=== PATIENT | female | born 1945 | race Caucasian/White ===

== ENCOUNTER 2021-02-21 09:05 | Outpatient (REF) | payer BC, MEDICARE, SELFPAY ==
[2021-02-21 11:27] LABS: Hemoglobin 14.1 g/dl (12.0-16.0); Mean Corpuscular HGB Conc 32.8 g/dl (31.0-35.0); Mean Corpuscular Volume 94.5 fL (80-98); Mean Platelet Volume 10.5 fL (9.4-12.3); Platelet Count 374 X10*3/uL (160-400); Red Blood Count 4.55 X10*6/uL (4.20-5.50); Red Cell Distribution Width 12.4 % (11.0-16.0); White Blood Count 6.7 X10*3/uL (4.8-10.8)
[2021-02-21 11:31] LABS: Alanine Aminotransferase 23 U/L (0-31); Albumin Level 4.2 g/dL (3.5-5.0); Alkaline Phosphatase 74 U/L (39-117); Anion Gap 12 (12-20); Aspartate Amino Transferase 21 U/L (5-31); Blood Urea Nitrogen 8 mg/dL (9-16); Calcium 9.9 mg/dL (8.4-10.2); Carbon Dioxide 27 mmol/L (22-29); Chloride 108 mmol/L (96-108); Cholesterol 176 mg/dL; Estimated Glomerular Filt Rate > 60; Glucose Fasting 96 mg/dL (60-99); HDL Cholesterol 65 mg/dL; LDL Cholesterol Calculated 98 mg/dl; Potassium 4.6 mmol/L (3.3-5.1); Sodium 142 mmol/L (135-145); Total Protein 6.3 g/dL (6.5-8.0); Triglycerides 66 mg/dL
[2021-02-21 11:53] LABS: Vitamin D 25-OH Total 31.4 ng/mL (>30)
== END 2021-02-21 09:06 | disposition home or self-care (01) ==
LOC: HO.MANLDS 09:05
PROVIDERS: PCP Internal Medicine; Visit Provider Internal Medicine
DX: E78.00 Pure hypercholesterolemia, unspecified (principal)
CPT/HCPCS: 36415; 80053; 80061; 82306; 85027

== ENCOUNTER 2022-04-17 09:59 | Outpatient (REF) | payer BC, MEDICARE, SELFPAY ==
[2022-04-17 11:10] LABS: MANUAL DIFF FLAG NO
[2022-04-17 11:20] LABS: Basophils Percent Auto 0.6 % (0-2); Eosinophils Absolute Auto 0.2 X10*3/uL (0.0-0.4); Eosinophils Percent Auto 2.4 % (0-4); Hemoglobin 14.4 g/dl (12.0-16.0); Imm Gran Abs Auto 0.01 X10*3/uL (0.00-0.03); Imm Gran Pct Auto 0.2 % (0.0-0.4); Lymphocytes Absolute Auto 2.3 X10*3/uL (1.2-4.9); Lymphocytes Percent Auto 35.5 % (20-40); Mean Corpuscular HGB Conc 33.5 g/dl (31.0-35.0); Mean Corpuscular Hemoglobin 31.7 pg (27.0-33.0); Mean Corpuscular Volume 94.7 fL (80.0-98.0); Mean Platelet Volume 10.3 fL (9.4-12.3); Monocytes Absolute Auto 0.6 X10*3/uL (0.1-1.2); Monocytes Percent Auto 9.1 % (2-11); Neutrophils Absolute Auto 3.4 x10*3/uL (2.0-8.3); Neutrophils Percent Auto 52.2 % (45-73); Platelet Count 381 X10*3/uL (160-400); Red Blood Count 4.54 X10*6/uL (4.20-5.50); White Blood Count 6.6 X10*3/uL (4.8-10.8)
[2022-04-17 11:39] LABS: Alanine Aminotransferase 27 U/L (0-31); Alkaline Phosphatase 62 U/L (39-117); Anion Gap 12 (12-20); Aspartate Amino Transferase 21 U/L (5-31); Bilirubin Total 0.9 mg/dL (0.0-1.0); Blood Urea Nitrogen 10 mg/dL (9-16); Calcium 9.5 mg/dL (8.4-10.2); Carbon Dioxide 27 mmol/L (22-29); Chloride 106 mmol/L (96-108); Cholesterol 208 mg/dL; Estimated Glomerular Filt Rate > 60; Glucose Random 99 mg/dL (60-115); HDL Cholesterol 75 mg/dL; LDL Cholesterol Calculated 119 mg/dl; Potassium 4.2 mmol/L (3.3-5.1); Sodium 141 mmol/L (135-145); Total Protein 6.3 g/dL (6.5-8.0); Triglycerides 74 mg/dL
[2022-04-17 12:02] LABS: Thyroid Stimulating Hormone 1.36 uIU/mL (0.32-4.0); Vitamin D 25-OH Total 34.4 ng/mL (>30)
[2022-04-17 12:11] LABS: Vitamin B12 564 pg/mL (200-900)
== END 2022-04-17 10:00 | disposition home or self-care (01) ==
LOC: HO.MANLDS 09:59
PROVIDERS: Visit Provider Internal Medicine
DX: Z00.00 Encounter for general adult medical examination without abnormal findings (principal)
CPT/HCPCS: 36415; 80053; 80061; 82306; 82607; 84443; 85025

== ENCOUNTER 2023-11-10 08:14 | Outpatient (REF) | payer BC, MEDICARE, SELFPAY ==
[2023-11-10 13:17] LABS: MANUAL DIFF FLAG NO
[2023-11-10 13:28] LABS: Basophils Percent Auto 0.6 % (0-2); Eosinophils Absolute Auto 0.2 X10*3/uL (0.0-0.4); Eosinophils Percent Auto 3.2 % (0-4); Hematocrit 45.4 % (37.0-47.0); Imm Gran Abs Auto 0.01 X10*3/uL (0.00-0.03); Imm Gran Pct Auto 0.2 % (0.0-0.4); Lymphocytes Absolute Auto 2.2 X10*3/uL (1.2-4.9); Lymphocytes Percent Auto 41.6 % (20-40); Mean Corpuscular Hemoglobin 31.3 pg (27.0-33.0); Mean Corpuscular Volume 94.6 fL (80.0-98.0); Mean Platelet Volume 10.3 fL (9.4-12.3); Monocytes Absolute Auto 0.5 X10*3/uL (0.1-1.2); Monocytes Percent Auto 8.9 % (2-11); Neutrophils Absolute Auto 2.4 x10*3/uL (2.0-8.3); Neutrophils Percent Auto 45.5 % (45-73); Platelet Count 373 X10*3/uL (160-400); Red Cell Distribution Width 12.3 % (11.0-16.0); White Blood Count 5.3 X10*3/uL (4.8-10.8)
[2023-11-10 14:20] LABS: Alanine Aminotransferase 35 U/L (0-31); Albumin Level 4.2 g/dL (3.5-5.0); Alkaline Phosphatase 70 U/L (39-117); Anion Gap 11 (12-20); Aspartate Amino Transferase 25 U/L (5-31); Blood Urea Nitrogen 8 mg/dL (9-16); Calcium 9.9 mg/dL (8.4-10.2); Carbon Dioxide 29 mmol/L (22-29); Chloride 105 mmol/L (96-108); Cholesterol 205 mg/dL (<200); Estimated Glomerular Filt Rate > 60; Glucose Random 91 mg/dL (60-115); HDL Cholesterol 83 mg/dL (>40); LDL Cholesterol Calculated 107 mg/dL (<100); Potassium 4.1 mmol/L (3.3-5.1); Sodium 141 mmol/L (135-145); Total Protein 6.7 g/dL (6.5-8.0); Triglycerides 76 mg/dL (<150)
[2023-11-10 14:29] LABS: Vitamin D 25-OH Total 38.1 ng/mL (>30)
== END 2023-11-10 08:15 | disposition home or self-care (01) ==
LOC: HO.MANLDS 08:14
PROVIDERS: Visit Provider Internal Medicine
DX: I10 Essential (primary) hypertension (principal); E55.9 Vitamin D deficiency, unspecified
CPT/HCPCS: 36415; 80053; 80061; 82306; 85025

== ENCOUNTER 2024-11-21 08:12 | Outpatient (REF) | payer BC, MEDICARE, SELFPAY ==
[2024-11-21 13:12] LABS: MANUAL DIFF FLAG NO
[2024-11-21 13:32] LABS: Basophils Absolute Auto 0.1 X10*3/uL (0.0-0.2); Basophils Percent Auto 0.7 % (0-2); Eosinophils Absolute Auto 0.2 X10*3/uL (0.0-0.4); Eosinophils Percent Auto 2.3 % (0-4); Hematocrit 43.2 % (37.0-47.0); Hemoglobin 14.3 g/dl (12.0-16.0); Imm Gran Abs Auto 0.02 X10*3/uL (0.00-0.03); Imm Gran Pct Auto 0.3 % (0.0-0.4); Lymphocytes Absolute Auto 2.1 X10*3/uL (1.2-4.9); Lymphocytes Percent Auto 30.5 % (20-40); Mean Corpuscular HGB Conc 33.1 g/dl (31.0-35.0); Mean Corpuscular Hemoglobin 31.8 pg (27.0-33.0); Mean Corpuscular Volume 96.2 fL (80.0-98.0); Mean Platelet Volume 10.4 fL (9.4-12.3); Monocytes Absolute Auto 0.7 X10*3/uL (0.1-1.2); Monocytes Percent Auto 9.8 % (2-11); Neutrophils Absolute Auto 3.8 x10*3/uL (2.0-8.3); Neutrophils Percent Auto 56.4 % (45-73); Platelet Count 367 X10*3/uL (160-400); Red Blood Count 4.49 X10*6/uL (4.20-5.50); Red Cell Distribution Width 12.4 % (11.0-16.0); White Blood Count 6.8 X10*3/uL (4.8-10.8)
[2024-11-21 14:14] LABS: Alanine Aminotransferase 35 U/L (0-31); Alkaline Phosphatase 62 U/L (39-117); Anion Gap 8 (12-20); Aspartate Amino Transferase 29 U/L (5-31); Bilirubin Total 0.8 mg/dL (0.0-1.0); Blood Urea Nitrogen 11 mg/dL (9-16); Calcium 9.3 mg/dL (8.4-10.2); Carbon Dioxide 30 mmol/L (22-29); Chloride 106 mmol/L (96-108); Cholesterol 197 mg/dL (<200); Estimated Glomerular Filt Rate > 60; Glucose Fasting 90 mg/dL (60-99); HDL Cholesterol 83 mg/dL (>40); LDL Cholesterol Calculated 103 mg/dL (<100); Potassium 4.2 mmol/L (3.3-5.1); Sodium 140 mmol/L (135-145); Total Protein 6.3 g/dL (6.5-8.0); Triglycerides 58 mg/dL (<150)
[2024-11-21 14:16] LABS: Vitamin D 25-OH Total 42.6 ng/mL (>30)
== END 2024-11-21 08:13 | disposition home or self-care (01) ==
LOC: HO.MANLDS 08:12
PROVIDERS: Visit Provider Internal Medicine
DX: I10 Essential (primary) hypertension (principal); E78.00 Pure hypercholesterolemia, unspecified
CPT/HCPCS: 36415; 80053; 80061; 82306; 85025

== ENCOUNTER 2025-05-14 10:10 | Outpatient (REF) | payer BC, MEDICARE, SELFPAY ==
--- OUTSIDE RECORDS SUMMARY | 2025-05-14 11:50 | XMS_ITS | Encounter Summary ---
Author Organization [facility] Address [address] [facility] [address] [place] [address] Phone Care Team Providers Care Franchise Sales Manager Name Role Phone Liam Matias DO Primary Care Provider Liam Matias DO Unavailable Encounter Details Date Type Department Care Team (Late st Contact Info) Description 11/22/2018 Transcribe Orders Virtual Department [address] [place] [address] Liam Matias DO [address] [facility] [place] [address] [place] [address] [email or web address] Other specified disorders of bone density and structure, unspecified site (Primary Dx) Social History Tobacco Use Types Packs/Day Years Used Date Smoking Tobacco: Never Assessed Comments No Sex and Gender Information Value Date Recorded Sex Assigned at Not on file Legal Sex Female 10:07 PM EDT Gender Identity Not on file Sexual Orientation Not on file documented as of this encounter Plan of Treatment Not on file documented as of this encounter Results * BD DXA AXIAL (SPINE) WITH HIP (12/12/2018 11:28 AM EDT) Anatomical Region Laterality Modality Bone Density Bone Density 12/12/2018 12:2 9 PM EDT Impressions 12/12/2018 12:31 PM EDT Osteopenia evident in the left hip. S/S: Estrogen deficiency, bone density screening, height loss, osteopenia POS - [id number] Narrative 12/12/2018 12:31 PM EDT This is a 73-year-old postmenopausal patient with 1/2 inch of height loss reported.. Evaluation of the lumbar spine and both hips is obtained and appears appropriate. The lumbar spine from L1 through L4 discloses a total bone mineral density of 1.107 g/cm2 with a T-score of 0.5. This is in the normal range. The right hip has a total bone mineral density of 0.823 g/cm2 with a T-score of -1.0 this is in the normal range. The left hip has a total bone mineral density of 0.756 g/cm2 for a T-score of -1.5. This is in the osteopenia range. Procedure Note Andrea Plascencia MD - 12/12/2018 This is a 73-year-old postmenopausal patient with 1/2 inch of height lossreported.. Evaluation of the lumbar spine and both hips is obtained and appearsappropriate. The lumbar spine from L1 through L4 discloses a total bone mineral densityof 1.107 g/cm2 with a T-score of 0.5. This is in the normal range. The right hip has a total bone mineral density of 0.823 g/cm2 with aT-score of - 1.0 this is in the normal range. The left hip has a total bone mineral density of 0.756 g/cm2 for a T-scoreof - 1.5. This is in the osteopenia range. IMPRESSION: Osteopenia evident in the left hip. S/S: Estrogen deficiency, bone density screening, height loss, osteopenia POS - [id number] us Liam Matias DO IMG BD BONE DENSITY DEXA Final R esult documented in this encounter Visit Diagnoses Diagnosis Other specified disorders of bone density and structure, unspecified site- Primary Other specified disorders of bone density and structure, unspecified site documented in this encounter Care Teams Franchise Sales Manager Relationship Specialty Start Date End Date Liam Matias DO [email or web address] PCP - General 05/10/17 Liam Matias DO [address] [place] [address] [email or web address] Insurance Assigned Provider 10/30/23 documented as of this encounter Additional Source Comments The information contained in this document represents components of the legal health record. It is not the complete legal health record.[facility]
--- OUTSIDE RECORDS SUMMARY | 2025-05-14 11:50 | XMS_ITS | Encounter Summary ---
Author Organization [facility] Address [address] [address] Phone Care Team Providers Care Music Historian Name Role Phone Liam Matias DO Primary Care Provider [phone] Liam Matias DO Unavailable Encounter Details Date Type Department Care Team (Late st Contact Info) Description 04/18/2021 Procedure Pass [facility] Endoscopy Admitting Dept Virtual Department [address] [place] [address] Social History Tobacco Use Types Packs/Day Years Used Date Smoking Tobacco: Former Cigarettes S tarted: 1995 Smokeless Tobacco: Never Alcohol Use Standard Drinks/Week Comments Yes 4 (1 standard drink = 0.6 oz pur e alcohol) Comments No Sex and Gender Information Value Date Recorded Sex Assigned at Not on file Legal Sex Female 10:07 PM EDT Gender Identity Not on file Sexual Orientation Not on file documented as of this encounter Plan of Treatment Not on file documented as of this encounter Visit Diagnoses Not on filedocumented in this encounter Care Teams Music Historian Relationship Specialty Start Date End Date Liam Matias DO PCP - General 05/10/17 Liam Matias DO [address] [place] [address] Insurance Assigned Provider 10/30/23 documented as of this encounter Additional Source Comments The information contained in this document represents components of the legal health record. It is not the complete legal health record.[facility]
--- OUTSIDE RECORDS SUMMARY | 2025-05-14 11:50 | XMS_ITS | Encounter Summary ---
Author Organization [facility] Address [address] [facility] [address] [place] [address] Phone Care Team Providers Care Financial Retirement Plan Specialist Name Role Phone Liam Matias DO Primary Care Provider Liam Matias DO Unavailable Encounter Details Date Type Department Care Team ([facility] st Contact Info) Description 05/17/2024 Transcribe Orders Virtual Department [address] [place] [address] Liam Matias DO [address] [facility] [place] [address] [place] [address] [email or web address] Breast screening (Primary Dx); Encounter for screening for osteoporosis Social History Tobacco Use Types Packs/Day Years Used Date Smoking Tobacco: Former Cigarettes S tarted: 1995 Smokeless Tobacco: Never Alcohol Use Standard Drinks/Week Comments Yes 4 (1 standard drink = 0.6 oz pur e alcohol) Education Answer Date Recorded Are you interested in more education? Not on carin e 11/20/2022 Are you concerned about learning? Not on file 11/20/2022 No 11/20/2022 No 11/20/2022 Digital Access Answer Date Recorded No 12/19/2022 No 12/19/2022 Reliable internet access at home? Not on file 12/19/2022 Device with a working camera? Not on file Comments No Sex and Gender Information Value Date Recorded Sex Assigned at Not on file Legal Sex Female 10:07 PM EDT Gender Identity Not on file Sexual Orientation Not on file documented as of this encounter Plan of Treatment Not on file documented as of this encounter Visit Diagnoses Diagnosis Breast screening- Primary Breast screening, unspecified Encounter for screening for osteoporosis documented in this encounter Care Teams Financial Retirement Plan Specialist Relationship Specialty Start Date End Date Liam Matias DO [email or web address] PCP - General 05/10/17 Liam Matias DO [address] [place] [address] [email or web address] Insurance Assigned Provider 10/30/23 documented as of this encounter Additional Source Comments The information contained in this document represents components of the legal health record. It is not the complete legal health record.[facility]
--- OUTSIDE RECORDS SUMMARY | 2025-05-14 11:50 | XMS_ITS | Encounter Summary ---
Author Organization [facility] Address [address] [place] [address] Phone Care Team Providers Care Cutch Cleaner Name Role Phone Liam Matias DO Primary Care Provider [phone] Liam Matias DO Unavailable Encounter Details Date Type Department Care Team (Late st Contact Info) Description 01/21/2021 Ancillary Orders Virtual Department [address] [place] [address] Liam Matias DO [address] [facility] [place] [address] [email or web address] Breast screening; Encounter for screening for osteoporosis Social History [...] of this encounter Visit Diagnoses Diagnosis Breast screening Breast screening, unspecified Encounter for screening for osteoporosis documented in this encounter Care Teams Cutch Cleaner Relationship Specialty Start Date End Date Liam Matias DO [email or web address] PCP - General 05/10/17 Liam Matias DO [address] [facility] [place] [address] [email or web address] Insurance Assigned Provider 10/30/23 documented as of this encounter Additional Source Comments The information contained in this document represents components of the legal health record. It is not the complete legal health record.[facility]
--- OUTSIDE RECORDS SUMMARY | 2025-05-14 11:50 | XMS_ITS | Encounter Summary ---
Author Organization [facility] Address [address] [employer] [facility] [address] [place] [address] Phone Care Team Providers Care Wafer Cleaner Name Role Phone Liam Matias DO Primary Care Provider [phone] Liam Matias DO Unavailable Encounter Details Date Type Department Care Team (Late st Contact Info) Description 05/19/2019 Ancillary Orders Virtual Department [address] [place] [address] Liam Matias DO [address] [place] [address] [email or web address] Other specified disorders of bone density and structure, unspecified site; Osteopenia, unspecified location Social History Tobacco Use Types Packs/Day Years Used Date Smoking Tobacco: Never Assessed Comments No Sex and Gender Information Value Date Recorded Sex Assigned at Not on file Legal Sex Female 10:07 PM EDT Gender Identity Not on file Sexual Orientation Not on file documented as of this encounter Plan of Treatment Not on file documented as of this encounter Visit Diagnoses Diagnosis Other specified disorders of bone density and structure, unspecified site Osteopenia, unspecified location documented in this encounter Care Teams Wafer Cleaner Relationship Specialty Start Date End Date Liam Matias DO PCP - General 05/10/17 Liam Matias DO [address] [place] [address] [email or web address] Insurance Assigned Provider 10/30/23 documented as of this encounter Additional Source Comments The information contained in this document represents components of the legal health record. It is not the complete legal health record.[facility]
--- OUTSIDE RECORDS SUMMARY | 2025-05-14 11:50 | XMS_ITS | Clinical Summary ---
Author Organization [facility] Address [address] [place] [address] Phone Care Team Providers Care Power Sweeper Operator Name Role Phone Liam Matias Primary Care Provider Allergies Active Allergy Reactions Criticality Noted Date Comments Mint Hives 04/16/2021 Medications aspirin 81 MG EC tablet daily. Active atorvastatin (LIPITOR) 20 MG tablet atorvastatin 20 mg tablet TAKE 1 TABLET BY MOUTH EVERY DAY Active lisinopril (PRINIVIL,ZESTR IL) 20 MG tablet daily. Active niacinamide 500 mg tablet daily. Active travoprost (TRAVATAN Z) 0.004 % Drop travoprost 0.004 % eye drops Active dsaqgnod-hwn-fc kd-MI-qladbk (CENTRUM SILVER WOMEN) 8 mg iron-400 mcg-300 mcg Tab daily. Acti ve omega 2-nxy-bjo-fish oil (FISH OIL) 1,000 mg (120 mg-180 mg) Cap Fish Oil 1,000 mg (120 mg-180 mg) capsule Take 1 capsule twice a day by oral route. Active calcium carbonate-vitam in D3 600mg (1,000mg) -1,000 unit Tab Osteo-Rocky 1 tablet by mouth three times a day Active Active Problems No known active problems Social History Tobacco Use Types Packs/Day Years [...] on file Sexual Orientation Not on file Last Filed Vital Signs Vital Sign Reading Time Taken Comments Blood Pressure 132/73 04/18/2021 8:06 AM EDT Pulse 68 04/18/2021 7:50 AM EDT Temperature 36.9 C (98.4 F) 04/18/2021 7:50 AM EDT Respiratory Rate 18 04/18/2021 8:06 AM EDT Oxygen Saturation 96% 04/18/2021 8:06 AM EDT Inhaled Oxygen Concentration - - Weight 76.2 kg (168 lb) 04/16/2021 2:16 PM EDT Height 172.7 cm (5' 8 ) 04/16/2021 2:16 PM EDT Body Mass Index 25.54 04/16/2021 2:16 PM EDT Plan of Treatment Health Maintenance Due Date Last Done Comments Adult Td,Tdap Booster 1945 CREATININE LEVEL 1945 POTASSIUM LEVEL 1946 DEPRESSION SCREENING 1958 SMOKING Hx and SMOKELESS TOBACCO SCREENING 11/07/1959 ZOSTER VACCINES (3 of 3) 01/12/2019 019, 09/16/2018, 2015 RSV VACCINE (1 - 1-dose 75+ series) 2021 INFLUENZA VACCINE (#1) 2025 , 03/15/2020, 04/15/2019, Additional history exists COVID-19 VACCINE ( - 2024- season) 2025 09/26/2020, 08/31/2020 LIPID PANEL 11/09/2028 11/10/2023, 03/27, 04/17/2022, Additional history exists PNEUMOCOCCAL VACCINES (50+ years) Completed 07/27/2018, 05/14/2017 OSTEOPOROSIS SCREENING INITIAL (ONE-TIME) Completed 12/12/2018 HEPATITIS C SCREENING Completed 05/15/2019 HEPATITIS A VACCINES Aged Out No long er eligible based on patient's age to complete this topic HIB VACCINES Aged Out No longer eligi ble based on patient's age to complete this topic MENINGOCOCCAL VACCINES (ACWY) Aged Out No longer eligible based on patient's age to complete this topic MENINGOCOCCAL VACCINES (B) Aged Out N o longer eligible based on patient's age to complete this topic Medical Devices Not on file Procedures Procedure Name Priority Date/Time Associated Diagnosis Comments BD DXA AXIAL (SPINE) WITH HIP Routine 12/12/2018 11:28 AM EDT Other specified disorders of bone density and structure, unspecified site from Last 3 Months or Most Recently Relevant to Health Maintenance Results * BD DXA AXIAL (SPINE) WITH [...] in the osteopenia range. Procedure Note Andrea Davalos MD - 12/12/2018 This is a 73-year-old [...] loss, osteopenia POS - [id number] us Liam Gary Matias DO IMG BD BONE DENSITY DEXA Final R esult from Last 3 Months or Most Recently Relevant to Health Maintenance [facility] [address] [place] [address] [place] [address] [place] [address] [place] [address] [place] [address] [place] [facility] HMO POS [facility] [place] [address] [facility] Care Teams Power Sweeper Operator Relationship Specialty Start Date End Date Liam Matias DO PCP - General 05/10/17 Additional Source Comments The information contained in this document represents components of the legal health record. It is not the complete legal health record.[facility]
--- OUTSIDE RECORDS SUMMARY | 2025-05-14 11:50 | XMS_ITS | Encounter Summary ---
Author Organization [facility] Address [address] [facility] [address] [place] [address] Phone Care Team Providers Care Systems Development Consultant Name Role Phone Liam Matias DO Primary Care Provider [phone] Liam Matias DO Unavailable Encounter Details Date Type Department Care Team (Late st Contact Info) Description 05/27/2018 Ancillary Orders Virtual Department [address] [place] [address] Liam Matias DO [address] [facility] [place] [address] [place] [address] Breast screening Social History Tobacco Use Types Packs/Day Years Used Date Smoking Tobacco: Never Assessed Comments Unknown Sex and Gender Information Value Date Recorded Sex Assigned at Not on file Legal Sex Female 10:07 PM EDT Gender Identity Not on file Sexual Orientation Not on file documented as of this encounter Plan of Treatment Not on file documented as of this encounter Results * BI MAMMOGRAM SCREENING WITH TOMOSYNTHESIS WITH CAD (BILATERAL) (07/07/2018 8:32 AM EST) Anatomical Region Laterality Modality Breast Left, Breast Right, Breast Bilateral Bila teral Mammography 07/07/2018 9:08 AM EST Impressions 07/07/2018 9:13 AM EST No findings suspicious for malignancy are identified. In the absence of a worrisome palpable abnormality, annual screening mammography is recommended. BI-RADS CATEGORY: 1 - Negative. DENSITY: The breast tissue is heterogeneously dense, an appearance which lowers the sensitivity of mammography. POS [email or web address] Narrative 07/07/2018 9:13 AM EST COMPARISON: 11/20/2003 through 03/03/2011 Bilateral 3-D tomosynthesis with 2-D reconstructions in the CC and MLO projection. Computer-aided detection system also utilized. No new mass, asymmetry, architectural distortion or suspicious calcifications have become apparent on either side. Procedure Note Tobias Talamantes MD - 07/07/2018 COMPARISON: 11/20/2003 through 03/03/2011 Bilateral 3-D tomosynthesis with 2-D reconstructions in the CC and MLOprojection. Computer-aided detection system also utilized. No new mass, asymmetry, architectural distortion or suspiciouscalcifications have become apparent on either side. IMPRESSION: No findings suspicious for malignancy are identified. In the absence of aworrisome palpable abnormality, annual screening mammography isrecommended. BI-RADS CATEGORY: 1 - Negative. DENSITY: The breast tissue is heterogeneously dense, an appearance whichlowers the sensitivity of mammography. POS [email or web address] Liam Matias DO IMG MG EXAMS Final Result documented in this encounter Visit Diagnoses Diagnosis Breast screening Breast screening, unspecified Breast screening Breast screening, unspecified documented in this encounter Care Teams Systems Development Consultant Relationship Specialty Start Date End Date Liam Matias DO [email or web address] PCP - General 05/10/17 Liam Matias DO [address] [place] [address] [email or web address] Insurance Assigned Provider 10/30/23 documented as of this encounter Additional Source Comments The information contained in this document represents components of the legal health record. It is not the complete legal health record.[facility]
[2025-05-14 13:22] LABS: MANUAL DIFF FLAG NO
[2025-05-14 13:32] LABS: Hematocrit 44.5 % (37.0-47.0); Hemoglobin 14.9 g/dl (12.0-16.0); Imm Gran Abs Auto 0.01 X10*3/uL (0.00-0.03); Imm Gran Pct Auto 0.1 % (0.0-0.4); Lymphocytes Absolute Auto 1.8 X10*3/uL (1.2-4.9); Mean Corpuscular HGB Conc 33.5 g/dl (31.0-35.0); Mean Corpuscular Hemoglobin 31.6 pg (27.0-33.0); Mean Corpuscular Volume 94.5 fL (80.0-98.0); NRBC Abs Auto 0.000 X10*3/uL (0.0-0.012); NRBC Pct Auto 0.0 /100WBC (0.0-0.2); Platelet Count 347 X10*3/uL (160-400); Red Blood Count 4.71 X10*6/uL (4.20-5.50); White Blood Count 6.8 X10*3/uL (4.8-10.8)
[2025-05-14 13:55] LABS: Alanine Aminotransferase 33 U/L (0-31); Albumin Level 4.3 g/dL (3.5-5.0); Alkaline Phosphatase 62 U/L (39-117); Anion Gap 11 (12-20); Aspartate Amino Transferase 26 U/L (5-31); Blood Urea Nitrogen 7 mg/dL (9-16); Calcium 9.4 mg/dL (8.4-10.2); Carbon Dioxide 28 mmol/L (22-29); Chloride 106 mmol/L (96-108); Cholesterol 186 mg/dL (<200); Estimated Glomerular Filt Rate > 60; HDL Cholesterol 77 mg/dL (>40); Iron 132 mcg/dL (30-160); Percent Iron Saturation 46 % (15-50); Potassium 4.0 mmol/L (3.3-5.1); Sodium 141 mmol/L (135-145); Total Iron Binding Capacity 285 mcg/dL (228-428); Total Protein 6.4 g/dL (6.5-8.0); Triglycerides 62 mg/dL (<150); Unsaturated Iron Binding 153 ug/dL
[2025-05-14 14:04] LABS: Ferritin 128 ng/mL (10-250)
== END 2025-05-14 10:11 | disposition home or self-care (01) ==
LOC: HO.MANLDS 10:10
PROVIDERS: Visit Provider Internal Medicine
DX: E78.00 Pure hypercholesterolemia, unspecified (principal); E55.9 Vitamin D deficiency, unspecified
CPT/HCPCS: 36415; 80053; 80061; 82306; 82728; 83540; 85025